=== PATIENT | female | born 2000 | race Caucasian/White ===

== ENCOUNTER 2021-06-01 11:30 | Inpatient (IN) | payer OTHER ==
[2021-06-01] MEDS: ELECTROLYTE-148 SOLN 1,000 ML IV SCH ×2 (12:30→13:59)
[2021-06-01 13:04] VITALS: BMI 23.9
[2021-06-01] MEDS ORDERED: CITRIC ACID/SODIUM CITRATE 30 ML UNIT-DOSE CUP PO ONE (13:39)
[2021-06-01] MEDS ORDERED: OXYTOCIN 20 UNITS in 0.9% NS 40 UNIT/2,000 ML INFUS.BAG IV ONE (13:47)
[2021-06-01] MEDS ORDERED: morphine SULFATE/PF 1 MG/2 ML (2cc Syringe - QUVA) ONE (13:48)
[2021-06-01] MEDS ORDERED: ONDANSETRON 4 MG/2 ML VIAL ONE (13:56)
[2021-06-01] MEDS ORDERED: SODIUM CHLORIDE 0.9% P/F 10 ML VIAL IJ ONE (13:56)
[2021-06-01] MEDS ORDERED: ceFAZolin SODIUM 1 GM VIAL ONE (13:56)
[2021-06-01] MEDS ORDERED: IBUPROFEN 600 MG TABLET (FP) PO PRN (14:02)
[2021-06-01] MEDS ORDERED: ONDANSETRON 4 MG/2 ML VIAL IVPUSH PRN ×2 (14:02→14:07)
[2021-06-01] MEDS ORDERED: ACETAMINOPHEN 1000 MG/100 ML BAG IVPB PRN (14:06)
[2021-06-01] MEDS ORDERED: LACTATED RINGERS SOLUTION 1,000 ML IV SCH (14:15)
[2021-06-01] MEDS ORDERED: DEXAMETHASONE SOD PHOSPHATE 4 MG/1 ML VIAL ONE (14:39)
[2021-06-01] MEDS ORDERED: KETOROLAC TROMETHAMINE 30 MG/1 ML VIAL ONE (14:39)
[2021-06-01] MEDS ORDERED: BENZOCAINE 20% 57 GM BOTTLE TP PRN (15:00)
[2021-06-01] MEDS ORDERED: ACETAMINOPHEN 325 MG TABLET (FP) PO PRN ×2 (15:00→18:00)
[2021-06-01] MEDS ORDERED: METHYLERGONOVINE MALEATE 0.2 MG/1 ML AMP IM PRN (15:00)
[2021-06-01] MEDS: OXYTOCIN 20 UNITS in 0.9% NS 20 UNIT/1,000 ML INFUS.BAG IV SCH (18:08)
[2021-06-01] MEDS: IBUPROFEN 800 MG/8 ML IJ IVPB PRN (19:37)
[2021-06-01] MEDS: FERROUS SO4 325 MG TABLET (FP) PO SCH (22:00)
[2021-06-02] MEDS: OXYTOCIN 20 UNITS in 0.9% NS 20 UNIT/1,000 ML INFUS.BAG IV SCH ×2 (03:02→18:23)
[2021-06-02] MEDS: IBUPROFEN 800 MG/8 ML IJ IVPB PRN (03:11)
[2021-06-02 08:17] LABS: BASO % 0.3 % (0-2.0); EOS % 0.1 % (0-4.5); HEMATOCRIT 29.9 % (32.4-45.2); HEMOGLOBIN 10.4 GM/dL (10.7-15.3); LYMPH % 24.6 % (8-40); MCH 30.1 pg (25.7-33.7); MCHC 34.9 g/dl (32.0-36.0); MEAN CELL VOLUME 86.2 fl (80-96); MEAN PLT VOLUME 9.5 fl (7.5-11.1); MONO % 7.4 % (3.8-10.2); NEUT % 67.6 % (42.8-82.8); PLATELET COUNT 179 10^3/uL (134-434); RBC 3.46 M/mm3 (3.60-5.2); RDW 13.6 % (11.6-15.6); WHITE BLOOD COUNT 8.3 K/mm3 (4.0-10.0)
[2021-06-02] MEDS: FERROUS SO4 325 MG TABLET (FP) PO SCH ×2 (09:25→22:09)
[2021-06-02] MEDS: PRENATAL VITAMINS W/ FOLIC ACID TABLET (FP) PO SCH (09:25)
[2021-06-02] MEDS ORDERED: DIPHTH,PERTUSS(ACELL),TET 0.5 ML DISP.SYRIN IM ONE (10:00)
[2021-06-02] MEDS: IBUPROFEN 600 MG TABLET (FP) PO PRN (14:10)
[2021-06-02] MEDS: SIMETHICONE 80 MG TAB.CHEW (FP) PO PRN ×2 (14:11→18:33)
[2021-06-02] MEDS ORDERED: BISACODYL 10 MG SUPP.RECT RC PRN (15:00)
[2021-06-02] MEDS: oxyCODONE HCL 5 MG TABLET PO PRN (18:33)
[2021-06-03] MEDS: SIMETHICONE 80 MG TAB.CHEW (FP) PO PRN ×2 (03:13→21:20)
[2021-06-03] MEDS: oxyCODONE HCL 5 MG TABLET PO PRN ×2 (03:13→23:33)
[2021-06-03] MEDS: PRENATAL VITAMINS W/ FOLIC ACID TABLET (FP) PO SCH (09:57)
[2021-06-03] MEDS: FERROUS SO4 325 MG TABLET (FP) PO SCH ×2 (09:57→21:20)
[2021-06-03] MEDS: IBUPROFEN 600 MG TABLET (FP) PO PRN ×2 (09:57→21:20)
[2021-06-04] MEDS: FERROUS SO4 325 MG TABLET (FP) PO SCH (09:24)
[2021-06-04] MEDS: PRENATAL VITAMINS W/ FOLIC ACID TABLET (FP) PO SCH (09:24)
[2021-06-04 09:26] LABS: BASO % 0.5 % (0-2.0); EOS % 1.2 % (0-4.5); HEMATOCRIT 36.3 % (32.4-45.2); HEMOGLOBIN 12.2 GM/dL (10.7-15.3); LYMPH % 18.4 % (8-40); MCH 30.1 pg (25.7-33.7); MCHC 33.6 g/dl (32.0-36.0); MEAN CELL VOLUME 89.6 fl (80-96); MEAN PLT VOLUME 9.2 fl (7.5-11.1); NEUT % 75.9 % (42.8-82.8); PLATELET COUNT 217 10^3/uL (134-434); RBC 4.05 M/mm3 (3.60-5.2); RDW 14.2 % (11.6-15.6); WHITE BLOOD COUNT 7.5 K/mm3 (4.0-10.0)
[2021-06-04] MEDS: IBUPROFEN 600 MG TABLET (FP) PO PRN (11:31)
[2021-06-04 12:33] VITALS: BP 100/67; PULSE 97; TEMP 98.3
== END 2021-06-04 13:40 | disposition home or self-care (01) | DRG 540 ==
LOC: JLDR 11:30 → J3W 16:14
PROVIDERS: ADMIT Obstetrics & Gynecology; ATTEND Obstetrics & Gynecology
PROC: 10D00Z1 Extraction of Products of Conception, Low, Open Approach (ICD-10-PCS; principal; 2021-06-01)
DX: O32.1XX0 Maternal care for breech presentation, not applicable or unspecified (principal); O34.211 Maternal care for low transverse scar from previous cesarean delivery; Z3A.39 39 weeks gestation of pregnancy; Z37.0 Single live birth
CPT/HCPCS: 36415; 80053; 85025; 85610; 85730; 86780; 86850; 86900; 86901; 88307-TC; 90715; C9803; U0003; U0005